=== PATIENT | male | born 1950 | race Caucasian/White ===

== ENCOUNTER 2017-08-11 14:13 | Observation (INO) | payer MEDICARE, BC ==
[~2017-08-11] VITALS: Ht 185.4 cm; Wt 127.0 kg
[~2017-08-11 14:13] MED LIST: ABAT250V; AMLO10 PO; Altoprev40 MG PO
[2017-08-11 14:55] LABS: BASOPHILS ABSOLUTE AUTO 0.04 K/mm3 (0.00-0.23); BASOPHILS PERCENT AUTO 1 % (0-2); EOSINOPHILS ABSOLUTE AUTO 0.25 K/mm3 (0.00-0.68); EOSINOPHILS PERCENT AUTO 3 % (0-6); Hematocrit 45.7 % (37.0-53.0); Hemoglobin 15.9 g/dL (13.5-17.5); IMMATURE GRAN ABSOLUTE AUTO 0.02 K/mm3 (0.00-0.10); IMMATURE GRAN PERCENT AUTO 0 % (0-1); LYMPHOCYTES PERCENT AUTO 28 % (21-46); MONOCYTES ABSOLUTE AUTO 0.83 K/mm3 (0.16-1.47); MONOCYTES PERCENT AUTO 10 % (4-13); Mean Corpuscular HGB 29.6 pg (26.0-34.0); Mean Corpuscular HGB Conc 34.8 g/dL (31.5-36.5); Mean Corpuscular Volume 85 fL (80-100); Mean Platelet Volume 9.9 fL (9.1-12.4); NEUTROPHILS ABSOLUTE AUTO 4.94 K/mm3 (1.96-9.15); NEUTROPHILS PERCENT AUTO 58 % (41-73); Platelet Count 243 K/mm3 (150-400); RDW Coefficient Variation 12.9 % (11.7-14.2); RDW Standard Deviation 39.8 fL (35.1-46.3); Red Blood Cell Count 5.37 M/mm3 (4.30-5.90); White Blood Cell Count 8.48 K/mm3 (4.00-11.30)
[2017-08-11 15:14] LABS: Alanine Aminotransfer (ALT/SGP 28 U/L (12-78); Albumin, Blood 3.5 g/dL (3.4-5.0); Albumin/Globulin Ratio 0.9 (0.8-1.8); Alk Phos 101 U/L (50-136); Anion Gap 7 mmol/L (6-16); Aspartate Aminotrans (AST/SGOT 22 U/L (12-37); Bilirubin, Total 0.4 mg/dL (0.1-1.0); Blood Urea Nitrogen 12 mg/dL (8-24); CO2, Blood 27 mmol/L (21-32); Calcium, Blood 8.5 mg/dL (8.5-10.1); Chloride, Blood 108 mmol/L (98-108); Creatinine, Blood 0.93 mg/dL (0.60-1.20); Globulin, Blood 3.7 g/dL (2.2-4.0); Glomerular Filtration Rate >60 (60-); Glucose, Blood 93 mg/dL (70-99); Potassium, Blood 3.6 mmol/L (3.5-5.5); Sodium, Blood 142 mmol/L (136-145); Total Protein, Blood 7.2 g/dL (6.4-8.2); Troponin I <0.015 ng/mL (0.000-0.040)
[2017-08-11] MEDS ORDERED: Hair, Skin & N1 EACH PO (15:56)
[2017-08-12 05:17] LABS: Cholesterol 117 mg/dL (50-200); HDL Cholesterol 39 mg/dL (>39); LDL/HDL RATIO 1.5; Low Density Lipoprotein Chol 59 mg/dL (0-110); Triglycerides 93 mg/dL (30-160); Very Low Density Lipoprot Chol 18 mg/dL (6-32)
[2017-08-12 05:21] LABS: Thyroid Stimulating Hormone 0.867 uIU/mL (0.360-4.800)
[2017-08-12] MEDS ORDERED: LOVA40 PO (13:54)
[2017-09-09] MEDS ORDERED: COQ1050 MG PO (17:14)
[2017-09-09] MEDS ORDERED: ALOE VERA PO (17:15)
== END 2017-08-12 14:19 | disposition home or self-care (01) ==
LOC: ER 14:13 → MEDS 14:14 → ENPENDDIS 08-12 13:57 → MEDS 08-12 14:19
PROVIDERS: Family Medicine; Physician Assistant
DX: H53.2 Diplopia (principal); I10 Essential (primary) hypertension; Z87.891 Personal history of nicotine dependence; Z88.8 Allergy status to other drugs, medicaments and biological substances
CPT/HCPCS: 36415; 70450; 70551; 71046; 80053; 80061; 83880; 84443; 84484; 85025; 93005; 93010; 93880; 96372; 96374; 96375; 99285; C9113; G0378; J1650

== ENCOUNTER 2017-09-16 07:53 | Day surgery (SDC) | payer MEDICARE, BC ==
[~2017-09-16] VITALS: Ht 185.4 cm; Wt 127.0 kg
[~2017-09-16 07:53] MED LIST changes: +ALOE VERA PO; +COQ1050 MG PO; +Hair, Skin & N1 EACH PO; +LOVA40 PO
== END 2017-09-16 22:53 | disposition home or self-care (01) ==
LOC: ORSCMMR 07:53
PROVIDERS: Surgery
PROC: 0YU50JZ Supplement Right Inguinal Region with Synthetic Substitute, Open Approach (ICD-10-PCS; principal; 2017-09-16 09:30)
DX: K40.91 Unilateral inguinal hernia, without obstruction or gangrene, recurrent (principal); I10 Essential (primary) hypertension; Z87.891 Personal history of nicotine dependence; E66.01 Morbid (severe) obesity due to excess calories; Z68.36 Body mass index [BMI] 36.0-36.9, adult; Z79.899 Other long term (current) drug therapy
CPT/HCPCS: C1781; J0690; J1100; J2405; J3010; J7120

== ENCOUNTER → 2018-12-22 | Outpatient (CLI) | payer MEDICARE, BC | END | disposition home or self-care (01) | LOC: LAB SHORT 13:35 → PLD 13:35 | DX: D22.0 Melanocytic nevi of lip (principal); D04.62 Carcinoma in situ of skin of left upper limb, including shoulder; D18.01 Hemangioma of skin and subcutaneous tissue | CPT/HCPCS: 88305 ==

== ENCOUNTER → 2021-02-20 | Outpatient (CLI) | payer MEDICARE, BC | END | disposition home or self-care (01) | LOC: LAB 11:36 → LAB SHORT 11:36 | DX: D22.0 Melanocytic nevi of lip (principal); D22.5 Melanocytic nevi of trunk | CPT/HCPCS: 88305 ==

== ENCOUNTER → 2022-06-09 | Outpatient (CLI) | payer MEDICARE, BC | LOC: PLD 12:53 → LAB SHORT 12:53 | DX: D71 Functional disorders of polymorphonuclear neutrophils (principal) | CPT/HCPCS: 88305 ==